=== PATIENT | female | born 1995 | race Caucasian/White ===

== ENCOUNTER 2018-09-18 23:20 | Emergency (ER) | payer OTHER ==
--- NOTE | 2018-09-18 23:53 | ED Physician Chart ---
ED Chief Complaint/HPI - Patient Information Date Seen:: 09/18/18 Time Seen:: 23:48 Chief Complaint:: Rashes History of Present Illness:: 22 yo female with history of acnes and bipolar disorder. Pt has been on spironolactone for acnes for long time. Pt was recently put on lamotrigine and prazosin for 2 weeks. Pt noticed itchy, red rashes on bilateral hands a week ago. The rashes have gradually expanded to face, neck and all 4 extremities during the last 2 days. Allergies:: Allergies Allergy/AdvReac Type Severity Reaction Status Date / Time No Known Allergies Allergy Verified 09/18/18 23:32 Vitals:: Vital Signs - 8 hr 09/18/18 23:20 Temp 98.2 F HR 78 RR 18 BP 100/61 O2 Sat % 98 ED Review of Systems - Review of Systems General/Constitutional: No fever Skin: Skin lesions, Rash Head: No headache Eyes: No pain ENT: No nasal drainage Neck: No neck pain Cardio Vascular: No chest pain Pulmonary: No SOB GI: No nausea, No vomiting Musculoskeletal: No bone or joint pain Psychiatric: Prior psych history Neurological: No focal symptoms ED Past Medical History - Past Medical History Past Medical History: Other (Acnes ) Social History: Non Smoker, Alcohol, No Drug Use Psychiatricy History: Depression, Bipolar, Other (PTSD, panic attack) Family Medical History - Family Member Mother History Unknown: Yes ED Physical Exam - Physical Examination General/Constitutional: Awake, Alert Head: Atraumatic Eyes: PERRL, EOMI Other Skin comments:: Red, round rashes some of which are raised, 0.2-0.8cm in size, itchy. These rashes are located on neck, chest and all 4 limbs. Neck: No nuchal rigidity Respiratory: Clear to Auscultation Cardio Vascular: RRR, No murmur, gallop, rubs, NL S1 S2 GI: No tenderness/rebounding/guarding Extremities: normal strength in all extremities Neuro/Psych: No focal deficits ED Assessment - Assessment General Assessment: Drug rashes Bipolar disorder Depression PTSD Assessment/Comments:: Decadrone 4 mg PO x 1 Benadryl 25 mg PO x 1 ED Septic Shock - . Is Septic Shock (SBP<90, OR Lactate>4 mmol\L) present?: No - <6hrs of presentation: Vital Signs: Vital Signs - 8 hr 09/18/18 23:20 Temp 98.2 F HR 78 RR 18 BP 100/61 O2 Sat % 98 ED Reassessment (Disposition) - Reassessment Reassessment Condition:: Improved - Diagnosis Diagnosis:: Advise pt to consult mental health professional if stop or taper the psych medications could relieve the rashes. - Patient Disposition Discharge/Transfer:: Home
== END 2018-09-19 00:04 | disposition home or self-care (01) ==
LOC: ER 23:20
DX: L27.0 Generalized skin eruption due to drugs and medicaments taken internally (principal); F32.9 Major depressive disorder, single episode, unspecified; F43.10 Post-traumatic stress disorder, unspecified
CPT/HCPCS: 99283; J8540; Z7502